=== PATIENT | female | born 1990 | race African-American/Black ===

== ENCOUNTER 2019-12-30 17:34 | Observation (INO) | payer MEDICAID ==
[~2019-12-30] VITALS: Ht 165.1 cm; Wt 83.9 kg
[~2019-12-30 17:34] MED LIST: NORG1TAB19
[2019-12-30] MEDS ORDERED: LACTATED RINGERS 1,000 ML IV SCH (18:30)
[2019-12-30 19:12] LABS: CLARITY URINE CLOUDY (CLEAR); COLOR URINE DARK YELLOW (YELLOW); KETONES URINE TRACE (NEGATIVE); LEUKOCYTE ESTERASE URINE TRACE (NEGATIVE); NITRITE URINE NEGATIVE (NEGATIVE); OCCULT BLOOD URINE NEGATIVE (NEGATIVE); PROTEIN URINE TRACE (NEGATIVE); SPECIFIC GRAVITY URINE 1.034 (1.005-1.030)
[2019-12-30] MEDS ORDERED: PNV1TABL50 PO (19:49)
== END 2019-12-30 20:10 | disposition home or self-care (01) ==
LOC: 8 EST LDRP 17:34
PROVIDERS: ADMIT Obstetrics & Gynecology; ATTEND Obstetrics & Gynecology
DX: O62.9 Abnormality of forces of labor, unspecified (principal); Z3A.27 27 weeks gestation of pregnancy
CPT/HCPCS: 81003; 99281; G0378

== ENCOUNTER 2021-03-04 12:40 | Emergency (ER) | payer MEDICAID ==
[~2021-03-04] VITALS: Ht 162.6 cm; Wt 76.3 kg
[~2021-03-04 12:40] MED LIST changes: +PNV1TABL50 PO
[2021-03-04] MEDS ORDERED: DIPHENHYDRAMINE 50MG/ML VIAL IV ONE (13:30)
[2021-03-04] MEDS ORDERED: DEXAMETHASONE 10 MG/ML VIAL IV ONE (13:30)
[2021-03-04] MEDS ORDERED: ACETAMINOPHEN 325MG TABLET PO ONE (13:30)
[2021-03-04] MEDS ORDERED: SODIUM CHLORIDE 0.9% 1,000 ML IV ONE (13:30)
[2021-03-04] MEDS ORDERED: METOCLOPRAMIDE HCL 10MG/2ML VIAL IV ONE (13:30)
[2021-03-04 13:53] LABS: EOSINOPHILS % 1.2 % (0.0-5.0); HEMATOCRIT. 33.9 % (36.0-48.0); HEMOGLOBIN. 11.4 g/dL (12.0-16.0); MEAN CORPUSCULAR VOLUME 86.7 fL (81.0-99.0); MEAN PLATELET VOLUME 8.7 fl (7.4-10.4); MONOCYTES % 8.5 % (2.0-8.0); NEUTROPHILS % 38.3 % (40.0-76.0); PLATELET 326 x1000/uL (130-400); RED BLOOD CELL COUNT 3.91 mill/uL (4.2-5.4); RED CELL DISTRIBUTION WIDTH 14.3 % (11.6-14.6)
[2021-03-04 14:00] LABS: CHLORIDE 110 mEq/L (98-107)
[2021-03-04 14:09] LABS: *AMPHETAMINES SCREEN URINE NEGATIVE (NEGATIVE); *BARBITURATES SCREEN URINE NEGATIVE (NEGATIVE); *BENZODIAZEPINES SCREEN URINE NEGATIVE (NEGATIVE); *COCAINE SCREEN URINE NEGATIVE (NEGATIVE); METHADONE URINE SCREEN NEGATIVE (NEGATIVE)
[2021-03-04 14:10] LABS: CANNABINOID URINE SCREEN NEGATIVE (NEGATIVE); OPIATES URINE SCREEN NEGATIVE (NEGATIVE); PHENCYCLIDINE URINE SCREEN NEGATIVE (NEGATIVE)
[2021-03-04] MEDS ORDERED: METO-293 MT (15:37)
[2021-03-04 16:12] VITALS: BP 130/70
== END 2021-03-04 16:13 | disposition home or self-care (01) ==
LOC: ER 12:40
DX: R51.9 Headache, unspecified (principal); D64.9 Anemia, unspecified; R03.0 Elevated blood-pressure reading, without diagnosis of hypertension
CPT/HCPCS: 36415; 80048; 80305; 81025; 85025; 96361; 96374; 96375; 99284; J1100; J1200; J2765; J7030